=== PATIENT | male | born 1945 | race Caucasian/White ===

== ENCOUNTER 2024-03-30 10:23 | Emergency (ER) | payer MEDICARE, SELFPAY ==
--- NOTE | ~2024-03-30 | XR_ITS ---
EXAMINATION: XR CHEST CLINICAL INFORMATION: Chest pain. COMPARISON: None available. TECHNIQUE: 2 views of the chest were obtained. FINDINGS: No consolidation, pleural effusion or pneumothorax. Cardiomediastinal silhouette is normal in size. Calcified plaque aortic arch. Multilevel thoracic spondylosis. XR/XR chest 2V IMPRESSION: No acute airspace disease. Electronically signed by: Chico Emery MD 03/30/2024 12:20 PM EST
--- NOTE | ~2024-03-30 | CT_ITS ---
EXAMINATION: CT ANGIOGRAM CHEST, PE PROTOCOL CLINICAL INFORMATION: Chest pain COMPARISON: None TECHNIQUE: Multidetector CT pulmonary angiography of the thorax was performed according to the pulmonary embolism protocol after intravenous administration of 75 mL of intravenous Omnipaque 350. Reformatted coronal and sagittal imaging was performed. 3-D MIP images performed at a dedicated separate workstation. This CT examination was performed using dose optimization techniques as appropriate, variously including the following: *Automated exposure control *Adjustment of mA and/or kV according to patient size (this includes techniques or standardized protocols for targeted exams where dose is matched to indication/reason for exam; i.e. extremities or head) *Use of iterative reconstruction technique DLP: 473 mGy-cm QUALITY: Overall Exam Quality: Satisfactory. Pulmonary Arterial Enhancement: Adequate. Breath Hold: Adequate. Artifacts Impacting Image Quality: None. FINDINGS: VASCULAR: Heart: Normal in size. Coronary artery calcifications not present. Aorta: No thoracoabdominal aortic aneurysm. Three vessel arch. Pulmonary Artery: No filling defect is identified in the central, lobar, segmental, or proximal subsegmental pulmonary arterial branches to suggest pulmonary embolus. NONVASCULAR: THORAX: Thyroid Gland: The visualized thyroid gland is normal. Mediastinum: Patulous debris-filled esophagus. No pathologic lymphadenopathy. Airways: The trachea and central bronchi are normal. Lungs: No airspace consolidation. Right upper lobe lobe solid 6 mm solid nodule (10; 237). Few additional scattered 2 mm upper lobe nodules are also present. Pleura: No pleural effusion. No pneumothorax. Upper Abdomen: Right hepatic cyst 3.0 cm. Soft Tissues/Musculoskeletal: No acute fracture or significant focal lesion. CT/CT angio chest PE protocol IMPRESSION: 1. No acute pulmonary embolus up to the proximal subsegmental level. 2. Bronchitis. 3. Right upper lobe 6 mm solid nodule. According to the UPDATED 2017 Fleischner Society recommendations, the advised follow-up imaging for solid nodules < 6 mm is: LOW RISK PATIENT: No routine follow-up. HIGH RISK PATIENT: Optional CT at 12 months. 4. Patulous debris filled esophagus. Fleischner guidelines were followed. Electronically signed by: Phu Beckman DO 03/30/2024 09:51 PM EST
--- NOTE | 2024-03-30 10:59 | ED_ITS ---
HPI - Chest Pain General Chief Complaint: Chest Pain Stated Complaint: Chest pain Time Seen by Provider: 03/30/24 17:40 Source: patient, RN notes reviewed and old records reviewed Mode of arrival: ambulatory Limitations: no limitations History of Present Illness ED Provider: Luc TRAORE narrative: 78-year-old male presents for evaluation of intermittent chest pain for the last 2 weeks. The patient also reports a productive cough for the last 3 weeks. This cough is productive of clear sputum. Currently he has no chest pain. 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 that is followed by vascular surgery He is not currently anticoagulated He is on lisinopril for hypertension Denies any sick contacts, fevers, chills Related Data Previous Rx's ?Medication ?Instructions ?Recorded azithromycin 250 mg tablet 250 mg PO DAILY 4 days #4 tabs 03/30/24 Allergies Allergy/AdvReac Type Severity Reaction Status Date / Time No Known Allergies Allergy Verified 03/30/24 11:03 Review of Systems 2 Constitutional: Constitutional: Denies body ache(s) and Denies fever(s) Eyes: Eyes: Denies blurry vision ENT: Denies vertigo and Denies dizziness Cardiovascular: Cardiovascular: Reports chest pain, Denies pedal edema, Denies leg edema and Denies dyspnea Respiratory: Respiratory: Reports cough and Denies dyspnea Gastrointestinal: Gastrointestinal: Denies abdominal pain, Denies nausea and Denies vomiting Musculoskeletal: Musculoskeletal: Denies back pain Integumentary/Breasts: Skin/Breast: Denies rash Neurologic: Denies vertigo and Denies dizziness Psychiatric: Psychiatric: Denies anxiety PMFSH Social History Social History Smoked in Last 30 Days: No Use of substances other than those prescribed or required for medical reasons: No Advance Directives: Yes Advance Directives Information Provided: No Advance Directives on File: No Physical Exam 2 Vital Signs: Vital Signs: Last Vital Signs Temp 98.7 F 03/30/24 21:55 Pulse 61 03/30/24 21:55 Resp 14 03/30/24 21:55 BP 141/67 H 03/30/24 21:55 Pulse Ox 97 03/30/24 21:55 O2 Del Method Room Air 03/30/24 21:55 BMI result Body Mass Index 25.1 Const: General: healthy appearing, comfortable, no acute distress, alert and awake Nutritional Appearance: well nourished Orientation/consciousness: p atient oriented x3 HEENT: Head: Yes normocephalic and Yes atraumatic Eyes: Eyelids: Yes eyelids normal Conjunctivae: conjunctivae normal S clerae: sclerae normal Corneas: corneas normal Pupils: Equal, round and reactive pupils present EOM: EOMs intact bilaterally Neck: Neck: Yes full ROM Resp: Effort & Inspection: normal respiratory effort, able to speak in complete sentences, no audible wheezes and not labored Auscultation: clear to auscultation bilaterally Cardio: Other: No lower extremity edema Rate: regular rate Rhythm: regular rhythm GI: Inspection: No distended Palpation (GI): Soft to palpation, not firm, nontender, no guarding and not rigid Skin: General skin exam: no rashes or lesions noted and elasticity normal Neuro: General: patient oriented x3 Cranial nerves: Yes Equal, round and reactive pupils present and Yes Bilaterally intact EOM present Cognition (Neuro): normal cognition Course Course Course Narrative: This is an RME: Additional HPI, ROS, PE not included below will be deferred to primary provider. RME assessment and note performed by: aRdha Castillo PA-C This is a [id number], with a past medical history of HTN and HLD who presents to the ER with complaints of chest pain x several weeks. Pain is left sided and intermittent. No dizziness, nausea, or SOB. Also endorses a productive cough with clear sputum. Reports that he has the chest pain in triage. Reports that he was walking this morning and felt the pain worsen. No recent travels, surgeries or hospitalizations Plan: Labs, EKG, chest xray, viral swabs Reevaluation(s) Reevaluation #1: Patient's CT scan shows no evidence of PE, does show acute bronchitis. Given that he has had these symptoms for over 3 weeks, we will treat with azithromycin. 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 I reviewed his workup, his troponin is negative x2, EKG is nondiagnostic but no ST segment elevation LA. Chest x-ray is clear. He does have a history of DVT and arterial clots, therefore I will get a CT angiography. If negative, it is possible that his cough may be related to lisinopril use. His viral swabs were also negative. The patient follows up with his primary doctor in 8 days from today. Differential Diagnosis Differential Diagnoses: The differential diagnosis associated with the presentation includes Cough Chest pain ACS PE Pleural effusion Pneumonia Viral syndrome Lab Data [facility] Lab Attestation statement: I reviewed the patient's lab results. No leukocytosis. The patient does have a mild normocytic anemia of unclear etiology. There is a left shift. No significant electrolyte abnormalities. Troponin negative x2 03/30/24 11:13 03/30/24 11:13 Labs: Lab Results 03/30/24 03/30/24 Range/Units 11:13 15:05 WBC 10.0 (4.8-10.8) X10*3/uL RBC 3.93 L (4.60-5.80) X10*6/uL Hgb 13.1 L (14.0-18.0) g/dl Hct 36.1 L (42.0-52.0) % MCV 91.9 (80.0-98.0) fL MCH 33.3 H (27.0-33.0) pg MCHC 36.3 H (31.0-36.0) g/dl RDW 12.3 (11.0-16.0) % Plt Count 176 (160-400) X10*3/uL MPV 9.5 (9.4-12.4) fL Immature Gran % (Auto) 0.5 H (0.0-0.4) % Neut % (Auto) 73.5 H (45-73) % Lymph % (Auto) 11.5 L (20-40) % [place] % (Auto) 12.9 H (2-11) % Eos % (Auto) 1.3 (0-4) % Baso % (Auto) 0.3 (0-2) % Lymph # (Auto) 1.2 (1.2-4.9) X10*3/uL [place] # (Auto) 1.3 H (0.1-1.2) X10*3/uL Eos # (Auto) 0.1 (0.0-0.4) X10*3/uL Baso # (Auto) 0.0 (0.0-0.2) X10*3/uL Abs Immat Gran (auto) 0.05 H (0.00-0.03) X10*3/uL Absolute Neuts (auto) 7.3 (2.0-8.3) x10*3/uL Absolute Nucleated RBC 0.000 (0.0-0.012) X10*3/uL Nucleated RBC % (auto) 0.0 (0.0-0.2) /100WBC PT 12.0 (10.9-12.4) SEC INR 1.0 (0.9-1.1) Sodium 138 (135-145) mmol/L Potassium 4.4 (3.3-5.1) mmol/L Chloride 104 (96-108) mmol/L Carbon Dioxide 22 (22-29) mmol/L Anion Gap 16 (12-20) BUN 20 H (9-16) mg/dL Creatinine 1.06 (0.5-1.4) mg/dL Estim Creat Clear Calc 57.3 Estimated GFR > 60 Random Glucose 103 (60-115) mg/dL Calcium 9.8 (8.4-10.2) mg/dL Magnesium 2.0 (1.6-2.6) mg/dL Total Bilirubin 0.7 (0.0-1.0) mg/dL Direct Bilirubin 0.3 (0.0-0.5) mg/dL AST 29 (5-37) U/L ALT 29 (0-40) U/L Alkaline Phosphatase 57 (39-117) U/L Troponin I High Sens < 2.7 < 2.7 (<3.5-35.0) ng/L B-Natriuretic Peptide 23 (<100) pg/mL Total Protein 7.7 (6.5-8.0) g/dL Albumin 4.3 (3.5-5.0) g/dL Influenza Type A (PCR) NEGATIVE (Negative) Influenza Type B (PCR) NEGATIVE (Negative) RSV RNA Qual (PCR) NEGATIVE (Negative) SARS-CoV-2 RNA (RT-PCR) NEGATIVE (Negative) Independent Interpretation I performed an independent interpretation of an: EKG (Sinus rhythm with a rate of 68 beats per minute. No ST segment elevations or depressions) Radiology Impression Discussion of test interpretation with radiology: I have reviewed the radiologist's reading. Radiologist Impression: FINDINGS: No consolidation, pleural effusion or pneumothorax. Cardiomediastinal silhouette is normal in size. Calcified plaque aortic arch. Multilevel thoracic spondylosis. XR/XR chest 2V IMPRESSION: No acute airspace disease. Electronically signed by: Chico Emery MD 03/30/2024 12:[address] [facility] Discharge Plan Discharge Clinical Impression: Chest pain, Acute bronchitis Patient Disposition: Home, Self-Care Instructions: Acute Bronchitis (ED) Additional Instructions: Your workup in the ER today was reassuring. Your CT scan did show acute bronchitis, but no blood clots in your lungs Take the azithromycin daily for the next 4 days starting tomorrow as your 1st dose was given in the ER Follow-up with your primary doctor next week as planned Return for new or worsening symptoms Prescriptions: New azithromycin 250 mg tablet 250 mg PO DAILY 4 Days Qty: 4 0RF Rx Instructions: start on day 2 of therapy Print Language: Vietnamese
[2024-03-30 11:00] VITALS: BP 131/56; PULSE 68; RESP 20; TEMP 36.7; O2SAT 97; BMI 25.1
[2024-03-30 11:21] LABS: MANUAL DIFF FLAG NO
[2024-03-30 11:24] LABS: Basophils Percent Auto 0.3 % (0-2); Eosinophils Absolute Auto 0.1 X10*3/uL (0.0-0.4); Eosinophils Percent Auto 1.3 % (0-4); Hematocrit 36.1 % (42.0-52.0); Hemoglobin 13.1 g/dl (14.0-18.0); Imm Gran Abs Auto 0.05 X10*3/uL (0.00-0.03); Imm Gran Pct Auto 0.5 % (0.0-0.4); Lymphocytes Absolute Auto 1.2 X10*3/uL (1.2-4.9); Lymphocytes Percent Auto 11.5 % (20-40); Mean Corpuscular HGB Conc 36.3 g/dl (31.0-36.0); Mean Corpuscular Hemoglobin 33.3 pg (27.0-33.0); Mean Corpuscular Volume 91.9 fL (80.0-98.0); Mean Platelet Volume 9.5 fL (9.4-12.4); Monocytes Absolute Auto 1.3 X10*3/uL (0.1-1.2); Monocytes Percent Auto 12.9 % (2-11); Neutrophils Absolute Auto 7.3 x10*3/uL (2.0-8.3); Neutrophils Percent Auto 73.5 % (45-73); Platelet Count 176 X10*3/uL (160-400); Red Blood Count 3.93 X10*6/uL (4.60-5.80); Red Cell Distribution Width 12.3 % (11.0-16.0)
[2024-03-30 11:37] LABS: Alanine Aminotransferase 29 U/L (0-40); Albumin Level 4.3 g/dL (3.5-5.0); Alkaline Phosphatase 57 U/L (39-117); Anion Gap 16 (12-20); Aspartate Amino Transferase 29 U/L (5-37); Bilirubin Direct 0.3 mg/dL (0.0-0.5); Bilirubin Total 0.7 mg/dL (0.0-1.0); Blood Urea Nitrogen 20 mg/dL (9-16); Calcium 9.8 mg/dL (8.4-10.2); Carbon Dioxide 22 mmol/L (22-29); Chloride 104 mmol/L (96-108); Creatinine Clr Calc Pharmacy 57.3; Estimated Glomerular Filt Rate > 60; Glucose Random 103 mg/dL (60-115); Potassium 4.4 mmol/L (3.3-5.1); Sodium 138 mmol/L (135-145); Total Protein 7.7 g/dL (6.5-8.0)
[2024-03-30 11:42] LABS: B Type Natriuretic Peptide 23 pg/mL (<100)
[2024-03-30 12:02] LABS: Troponin-I High Sensitivity < 2.7 ng/L (<3.5-35.0)
[2024-03-30 12:26] LABS: Influenza A PCR NEGATIVE (Negative); Influenza B PCR NEGATIVE (Negative); Resp Syncy Virus RNA Qual PCR NEGATIVE (Negative); SARS COV2 PCR INHOUSE NEGATIVE (Negative)
[2024-03-30 15:39] LABS: Troponin-I High Sensitivity < 2.7 ng/L (<3.5-35.0)
[2024-03-30 18:00] VITALS: BP 164/94; PULSE 66; RESP 16; O2SAT 96
[2024-03-30] MEDS: iohexoL 350 MG/ML 100 ML INFUS..BTL IV (18:40)
[2024-03-30 18:50] VITALS: BP 149/78; PULSE 65; RESP 15; TEMP 37.1; O2SAT 98
--- NOTE | 2024-03-30 18:50 | PC.NURSE ---
Pt presents to ED from home, reports intermittent chest pain on left side of chest for pain week. Also reports cough. Denies fevers, N/V, SOB. Alert and oriented, breathing even and unlabored. 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
--- NOTE | 2024-03-30 19:26 | PC.NURSE ---
Pt A&Ox4, laying comfortably in stretcher awaiting CTA results at this time for r/o PE. 07/03 chest pain.
[2024-03-30 20:18] VITALS: BP 139/66; PULSE 65; RESP 12; TEMP 36.9; O2SAT 97
--- NOTE | 2024-03-30 20:48 | PC.NURSE ---
Pt continuing to rest comfortably in bed. Awaiting CTA result.
[2024-03-30 21:55] VITALS: BP 141/67; PULSE 61; RESP 14; TEMP 37.1; O2SAT 97
[2024-03-30] MEDS: Azithromycin 500 MG TABLET PO (22:23)
[2024-03-30 22:30] VITALS: BP 141/67; PULSE 61; RESP 14; TEMP 37.1; O2SAT 97
== END 2024-03-30 22:31 | disposition home or self-care (01) ==
PROVIDERS: Physician Assistant Medical; Emergency Provider Internal Medicine; PCP Family Medicine
DX: R07.89 Other chest pain (principal); J20.9 Acute bronchitis, unspecified; R05.9 Cough, unspecified; R06.02 Shortness of breath; Z86.718 Personal history of other venous thrombosis and embolism; Z79.01 Long term (current) use of anticoagulants; Z03.818 Encounter for observation for suspected exposure to other biological agents ruled out; Z79.899 Other long term (current) drug therapy
CPT/HCPCS: 0241U; 36415; 71046; 71275; 80048; 80076; 83735; 83880; 84484; 85025; 85610; 99284; 99285; Q9967

== ENCOUNTER → 2024-03-30 11:03 | Outpatient (BNV) | payer MEDICARE, SELFPAY | PROVIDERS: PCP Family Medicine; Visit Provider Radiology Diagnostic Radiology | DX: R07.9 Chest pain, unspecified (principal) | CPT/HCPCS: 71046 ==